=== PATIENT | male | born 1975 | race Caucasian/White ===

== ENCOUNTER 2020-09-06 21:40 | Emergency (ER) | payer OTHER ==
[~2020-09-06] VITALS: Ht 165.1 cm; Wt 93.9 kg
[2020-09-06 21:49] VITALS: BP 149/82
[2020-09-06] MEDS ORDERED: HYDROcodone/APAP 10/325 MG 1 TAB TAB PO ONE (22:00)
[2020-09-06] MEDS ORDERED: KETOROLAC 60 MG/2 ML VIAL IM ONE (22:00)
--- NOTE | 2020-09-06 22:01 | NUR ---
ERMD MEDICALLY EVALUATING PATIENT IN TRIAGE.
[2020-09-06] MEDS ORDERED: IBUP-2218 PO (22:12)
--- NOTE | 2020-09-06 22:30 | NUR ---
SLING PLACED IN L SHOULDER AND PAIN MEDICATIONS GIVEN.
[2020-09-06 22:40] VITALS: BP 138/80
== END 2020-09-06 22:40 | disposition home or self-care (01) ==
LOC: MED 21:40
DX: M25.512 Pain in left shoulder (principal); G89.29 Other chronic pain; Z79.899 Other long term (current) drug therapy
CPT/HCPCS: 96372; 99283; J1885